=== PATIENT | female | born 1955 | race African-American/Black ===

== ENCOUNTER 2016-08-08 07:31 | Emergency (ER) | payer OTHER ==
[~2016-08-08 07:31] MED LIST: APRES25 PO; APRES50 PO; ASAB PO; ATENOLOL; CAT2 PO; CORDARONE PO; CRESTOR20 MG PO; IMDUR30 PO; IMDUR60 PO; K-TABS10 MEQ PO; L20 PO; LOP25 PO; LOP50 PO; MICRO-K10 MEQ PO; NEUR400 PO; NEUR800 PO; NORV10 PO; NTG150 SL; PEP20 PO; SPIRO25 PO; TENORETIC1 TAB PO; ULTRAM50 PO; VALTURN1 PO; VICODINTAB PO; VITAMIN D31000 UNIT PO; VITAMIN D400 UNI1 PO; ZOCOR40 PO; ZOL50 PO; [UNRECOGNIZED DRUG - REMARK]
[2016-08-08 07:33] LABS: BASOPHILS 0.1 %; BASOPHILS ABSOLUTE 0.01 10/3/uL (0.0-0.16); EOSINOPHILS 1.9 %; EOSINOPHILS ABSOLUTE 0.13 10/3/uL (0.0-0.53); HEMATOCRIT 34.5 % (36.0-48.0); HEMOGLOBIN 11.6 g/dL (12.0-16.0); IMMATURE GRANULOCYTES 0.1 %; IMMATURE GRANULOCYTES ABSOLUTE 0.01 10/3/uL (0.0-0.11); LYMPHOCYTES 28.3 %; LYMPHOCYTES ABSOLUTE 1.95 10/3/uL (0.67-4.30); MEAN CORPUS HGB CONC 33.6 g/dL (32.0-36.0); MEAN CORPUSCULAR VOLUME 92.2 fL (80-100); MONOCYTES 7.2 %; NEUTROPHILS 62.4 %; PLATELET COUNT 224 10/3/uL (150-400); RBC DISTRIBUTION WIDTH 14.5 % (12.0-16.0); RED CELL COUNT 3.74 10/6/uL (4.0-5.6); WHITE BLOOD CELLS 6.9 10/3/uL (4.5-10.5)
[2016-08-08 07:34] LABS: MANUAL DIFF NO %
[2016-08-08 07:41] LABS: PARTIAL THROMBO TIME 27.9 SEC (22.5-37.2)
[2016-08-08 07:50] LABS: BUN (BLOOD UREA NITROGEN) 20 MG/DL (6-23); CALCIUM, SERUM 8.8 MG/DL (8.5-10.4); CHEST PAIN PROFILE TAT 0 Hrs 21 Mins; CHLORIDE, SERUM 107 MMOL/L (96-112); CO2 (CARBON DIOXIDE) 28 MMOL/L (24-34); CREATININE 1.38 MG/DL (0.55-1.02); GFR AFRICAN AMERICAN 48 ML/MIN (>=60); GFR NON AFRICAN AMERICAN 42 ML/MIN (>=60); GLUCOSE, SERUM 104 MG/DL (60-99); POTASSIUM, SERUM 3.7 MMOL/L (3.5-5.3); SODIUM, SERUM 139 MMOL/L (135-148); TROPONIN I <0.02 NG/ML (<0.05)
== END 2016-08-08 08:35 | disposition home or self-care (01) ==
LOC: ER 07:31
PROVIDERS: Nurse Practitioner
DX: R00.2 Palpitations (principal); F17.200 Nicotine dependence, unspecified, uncomplicated; I10 Essential (primary) hypertension; Z95.5 Presence of coronary angioplasty implant and graft; Z88.8 Allergy status to other drugs, medicaments and biological substances; Z79.82 Long term (current) use of aspirin; Z86.73 Personal history of transient ischemic attack (TIA), and cerebral infarction without residual deficits; Z79.899 Other long term (current) drug therapy
CPT/HCPCS: 71010; 80048; 83735; 84484; 85025; 85610; 85730; 93005; 99285